=== PATIENT | male | born 2000 | race Caucasian/White ===

== ENCOUNTER 2019-05-19 21:58 | Inpatient (IN) | payer OTHER ==
[~2019-05-19] VITALS: Ht 195.6 cm; Wt 100.7 kg
[2019-05-19 22:45] LABS: BASO % 0.3 % (0.0-1.0); EOS # 0.1 10^3/uL (0.0-0.5); EOS % 1.1 % (0.0-3.0); HEMATOCRIT 41.1 % (42.0-52.0); HEMOGLOBIN 13.6 g/dl (13.5-17.5); LYMPH # 2.1 10^3/uL (1.5-5.0); LYMPH % 23.4 % (24.0-44.0); MEAN CORPUSCULAR HEMOGLOBIN 29.6 pg (27.0-33.0); MEAN CORPUSCULAR HGB CONC 33.1 g/dl (32.0-36.5); MEAN CORPUSCULAR VOLUME 89.5 fl (80.0-96.0); MONO # 1.3 10^3/uL (0.0-0.8); MONO % 14.3 % (0.0-5.0); NEUTROPHILS # 5.5 10^3/uL (1.5-8.5); NEUTROPHILS % 60.7 % (36.0-66.0); PLATELET COUNT, AUTOMATED 222 10^3/uL (150-450); RED BLOOD COUNT 4.59 10^6/uL (4.30-6.10)
[2019-05-19] MEDS ORDERED: NS 1,000 ML IV ONE (22:45)
[2019-05-19] MEDS ORDERED: GI COCKTAIL 50ML BTL(HYOSCYAMINE/MAALOX/LIDOCAINE VISCOUS)(1:3:1) PO ONE (22:45)
[2019-05-19] MEDS ORDERED: KETOROLAC 30 MG/ML VIAL (J1885) IV ONE (22:45)
[2019-05-19] MEDS ORDERED: methylPREDNISolone INJ 125 MG/2 ML VIAL (J2930) IV ONE (22:45)
[2019-05-19] MEDS ORDERED: ISOVUE-370 76% 100ML VIAL (Q9967) As Ordered ONE (22:47)
[2019-05-19 23:01] LABS: MONO REFLEX EBV COMP NEGATIVE (NEGATIVE)
--- NOTE | 2019-05-19 23:47 | REPVR ---
PROCEDURE INFORMATION: Exam: CT Neck With Contrast Exam date and time: 05/19/2019 10:51 PM Age: 19 years old Clinical history: Throat pain; Additional info: Dysphagia, neg strep, voice change TECHNIQUE: Imaging protocol: Computed tomography images of the neck with intravenous contrast. Radiation optimization: All CT scans at this facility use at least one of these dose optimization techniques: automated exposure control; mA and/or kV adjustment per patient size (includes targeted exams where dose is matched to clinical indication); or iterative reconstruction. Contrast material: ISOVUE 370; Contrast volume: 75 ml; Contrast route: IV; COMPARISON: No relevant prior studies available. FINDINGS: Nasopharynx: Unremarkable. Oropharynx: Marked widening of the right tonsillar pillar extending inferiorly to the hypopharynx with ill-defined hypodensity measuring 1.9 x 2.8 x 3 cm. consistent with gross adenopathy and likely an evolving abscess. There is mass effect on the hypopharyngeal airway. Prominent contour of the posterior aspect of the tongue consistent with lingual tonsil hypertrophy. Hypopharynx: Hypodensity is demonstrated in the region of the right piriform sinus effacing most of the sinus, findings which may be related to descending infection from the hypopharynx. Other etiologies not absolutely excluded. Impression for Larynx: Unremarkable. Normal epiglottis. Retropharyngeal space: Unremarkable. Submandibular/Parotid glands: Normal. Glands are normal in size. Thyroid: Normal. No enlarged or calcified nodules. Lymph nodes: Adenoidal hypertrophy consistent with adenopathy. Trachea: Visualized trachea is unremarkable. Lungs: Unremarkable as visualized. Bones/joints: Unremarkable. No acute fracture. Soft tissues: Left periorbital soft tissue lipoma. IMPRESSION: 1. Adenoidal hypertrophy consistent with adenopathy. 2. Marked widening of the right tonsillar pillar extending inferiorly to the hypopharynx with ill-defined hypodensity measuring 1.9 x 2.8 x 3 cm. consistent with gross adenopathy and likely an evolving abscess. There is mass effect on the hypopharyngeal airway. 3. Prominent contour of the posterior aspect of the tongue consistent with lingual tonsil hypertrophy. 4. Effacement of the right piriform sinus by irregular hypodensity may be related to the parapharyngeal abscess or present a secondary process. Electronically signed by: Shadi Doll On 05/19/2019 23:47:22 PM
[2019-05-20] VITALS (14 sets, daily range): BP systolic 112–134; BP diastolic 53–67; O2SAT 95–99
[2019-05-20 01:01] LABS: ERYTHROCYTE SEDIMENTATION RATE 64 mm/hr (0-15)
[2019-05-20] MEDS ORDERED: PIPERACILLIN/TAZOBACTAM SOD 3.375 GM in D5W MINI-BAG PLUS 50 ML IV ONE (01:30)
--- NOTE | 2019-05-20 01:38 | HPEPDOC ---
[facility] Medical History & Physical Date of Admission May 20, 2019 Date of Service: May 20, 2019 Attending Physician: PETER SWEET MD History and Physical TIME OF SERVICE: 250AM CC: itchy throat HPI: This is a 19 yr old male that presents with c/o of an itchy throat, associated with difficulties swallowing, subjective fever and muffled voice since Wednesday. He denies having a cough, runny nose, chills or sick contacts. ROS: 12 point ROS negative except as listed in HPI PMH/PSH none SH - tobacco + solider FMH reviewed - denies any family medical problems MEDS: see below NKDA IMAGING: CT of the throat "IMPRESSION: 1. Adenoidal hypertrophy consistent with adenopathy. 2. Marked widening of the right tonsillar pillar extending inferiorly to the hypopharynx with ill-defined hypodensity measuring 1.9 x 2.8 x 3 cm. consistent with gross adenopathy and likely an evolving abscess. There is mass effect on the hypopharyngeal airway. 3. Prominent contour of the posterior aspect of the tongue consistent with lingual tonsil hypertrophy. 4. Effacement of the right piriform sinus by irregular hypodensity may be related to the parapharyngeal abscess or present a secondary process." MICROBIOLOGY: pending PHYSICAL EXAM VITALS: see below GEN: doesn't appear toxic HEENT: + halitosis, right eye conjunctival injection, hyperremia and tonsilar swelling at the right side of the throat CVS: RRR, NMRG, radial pulses intact LUNGS: CTAB on RA MSK: ZACH x 4 extremities NEURO: CN 2-12 grossly intact, speech slightly muffled PSYCH: A&Ox 3, able to understand and follow all commands ASSESSMENT is a 19 yr with no PMH who will be admitted for management of a parapharyngeal abscess. PLAN: 1. Right parapharyngeal abscess w mass effect. He doesn't have SIRS criteria. ESR & CRP are elevated. He received solumedrol and Zozyn in the ER. Plan: admit to PCU for close monitoring / ENT consult / NPO aftermidnight's w IVF / c/w Zosyn/ Benzocaine throat spray w Morphine PRN for pain / f/u strep A, blood cx and post op-throat fluid cx DVT Px w SCDs Dispo: likely home after more than 2 midnight's stay Vital Signs Vital Signs Date Time Temp Pulse Resp B/P (MAP) Pulse Ox O2 Delivery O2 Flow Rate FiO2 05/20/19 01:23 97.1 78 17 124/67 (86) 99 Room Air Laboratory Data Labs 24H Laboratory Tests 2 05/19/19 22:38: Immature Granulocyte % (Auto) 0.2, Neutrophils (%) (Auto) 60.7, Lymphocytes (%) (Auto) 23.4L, Monocytes (%) (Auto) 14.3H, Eosinophils (%) (Auto) 1.1, Basophils (%) (Auto) 0.3, Neutrophils # (Auto) 5.5, Lymphocytes # (Auto) 2.1, Monocytes # (Auto) 1.3H, Eosinophils # (Auto) 0.1, Basophils # (Auto) 0.0, Nucleated Red Blood Cells % (auto) 0.0, Erythrocyte Sedimentation Rate 64H, C-Reactive Protein, Quantitative 4.79H 05/19/19 22:39: POC Glucose (Misc Panel) 94, POC Sodium (Misc Panel) 140, POC Potassium (Misc Panel) 3.9, POC Chloride (Misc Panel) 102, POC Total CO2 (Misc Panel) 28.0H, POC Blood Urea Nitrogen (Misc Panel 10, POC Ionized Calcium (Misc Panel) 4.8, POC Creatinine (Misc Panel) 0.8, POC Hematocrit (Misc Panel) 40.0, Monoscreen NEGAT GREGORY CBC/BMP Laboratory Tests 05/19/19 22:38 Microbiology Microbiology 05/19/19 Group A Streptococcus Screen (RE[facility]), Received Pending Home Medications No Active Prescriptions or Reported Meds Allergies Coded Allergies: No Known Allergies (Unverified , 05/19/19) A-FIB/CHADSVASC A-FIB History Current/History of A-Fib/PAF?: No Current PO Anticoag Therapy: No PETER SWEET MD May 20, 2019 01:38
[2019-05-20] MEDS ORDERED: ONDANSETRON 4MG/2ML VIAL (J2405) IV PRN (01:45)
[2019-05-20] MEDS ORDERED: MORPHINE 2 MG/ML 1ML VIAL (J2270) IV PRN (01:45)
[2019-05-20] MEDS ORDERED: ACETAMINOPHEN *IV* 1,000 MG in IV 1 EA IV ONE (01:45)
[2019-05-20] MEDS: NS 1,000 ML IV SCH ×3 (03:34→22:03)
[2019-05-20] MEDS ORDERED: CETACAINE SPRAY 5GM MT PRN (03:45)
[2019-05-20 07:32] LABS: HEMATOCRIT 39.5 % (42.0-52.0); HEMOGLOBIN 13.2 g/dl (13.5-17.5); MEAN CORPUSCULAR HEMOGLOBIN 29.6 pg (27.0-33.0); MEAN CORPUSCULAR HGB CONC 33.4 g/dl (32.0-36.5); MEAN CORPUSCULAR VOLUME 88.6 fl (80.0-96.0); PLATELET COUNT, AUTOMATED 233 10^3/uL (150-450); RED BLOOD COUNT 4.46 10^6/uL (4.30-6.10)
[2019-05-20 07:52] LABS: BLOOD UREA NITROGEN 15 MG/DL (7-18); CALCIUM LEVEL 9.5 MG/DL (8.5-10.1); CARBON DIOXIDE LEVEL 27 MEQ/L (21-32); CHLORIDE LEVEL 106 MEQ/L (98-107); CREATININE FOR GFR 0.87 MG/DL (0.70-1.30); GLOMERULAR FILTRATION RATE > 60.0 (>60); GLUCOSE, FASTING 154 MG/DL (70-100); POTASSIUM SERUM 4.5 MEQ/L (3.5-5.1); SODIUM LEVEL 139 MEQ/L (136-145)
[2019-05-20] MEDS: TAZOBACTAM SOD IV SCH ×2 (08:29→14:00)
[2019-05-20] MEDS: D5W MINI IV SCH ×2 (08:29→14:00)
[2019-05-20] MEDS: PIPERACILLIN IV SCH ×2 (08:29→14:00)
[2019-05-20] MEDS ORDERED: ACETAMINOPHEN TAB 650MG DOSE (2X325MG) PO PRN (08:30)
[2019-05-20] MEDS ORDERED: CETACAINE SPRAY 5GM TOP ONE (10:00)
[2019-05-20] MEDS ORDERED: LIDOCAINE W/EPINEPHRINE 1% 20ML VIAL SC ONE (10:00)
[2019-05-20] MEDS ORDERED: AUGM875T28 PO (10:22)
[2019-05-20] MEDS: PIPERACILLIN/TAZOBACTAM SOD 3.375 GM in D5W MINI-BAG PLUS 50 ML IV SCH ×2 (15:00→20:00)
--- NOTE | 2019-05-20 16:35 | IPNPDOC ---
Text Note Date of Service The patient was seen on 05/20/19. NOTE SUBJECTIVE: Patient is a 19-year-old male who was admitted early this morning for a right tonsillar abscess. He states that his pain is improved and he feels better on IV antibiotics. He does continue to hurt to swallow, but he denies any problems with his breathing. He says that he did originally have a fever, but has not had one since his presentation to the emergency department last night. He denies chest pain, nausea, vomiting, diarrhea, or bilateral lower extremity s welling. OBJECTIVE: Vitals: See below General: Well-nourished, well-groomed, young adult male in no acute distress HEENT: Mallampati 1. Soft palate swelling on the right side with erythema. No exudates are seen. Uvula rises midline. He has his own teeth and dentition is fair, with multiple cavities and fillings. Neck: No lymphadenopathy, rigidity, or masses Lungs: Clear to auscultation bilaterally; no wheezes, rhonchi, or rales Heart: Regular rate and rhythm; no gallops, murmurs, or rubs Abdomen: Normal active bowel sounds, nontender to palpation, nondistended Extremities: No bilateral lower extremity edema Neuro: No focal deficits noted, cranial nerves II through XII grossly intact Psych: Pleasant and cooperative, affect full ASSESSMENT: 19-year-old male admitted early this morning for a right peritonsillar abscess, on IV antibiotics Day #1 with IV Zosyn. PLAN: 1. Peritonsillar abscess, right-sided. Incision and drainage performed at the bedside with Dr. Nate Chua, otolaryngology. He continues on Zosyn. Continuous O2 monitoring for obstruction. Morphine when necessary for pain. Blood cultures pending, group A strep screen pending. DISPOSITION: Likely discharge home tomorrow with PO Augmentin VS,Fishbone, I+O VS, Fishbone, I+O Laboratory Tests 05/19/19 22:38 05/20/19 07:23 Vital Signs Date Time Temp Pulse Resp B/P (MAP) Pulse Ox O2 Delivery O2 Flow Rate FiO2 05/20/19 12:00 97.8 79 17 121/56 (77) 94 Room Air I&O- Last 24 Hours up to 6 AM 05/20/19 06:00 Intake Total 1050 ml Balance 1050 ml GME ATTESTATION GME ATTESTATION My faculty preceptor for this patient encounter was physically present during the encounter and was fully available. All aspects of the patient interview, examination, medical decision making process, and medical care plan development were reviewed and approved by the faculty preceptor. The faculty preceptor is aware and concurs with the plan as stated in the body of this note and will attest to such by his/her cosignature. ATTENDING NOTE I, Pepito Sylvester, have independently examined this patient and performed my own physical exam, as well as reviewed the documentation and edited where necessary. I have discussed in detail with the resident / student the findings and plan of treatment as documented by the resident / student and edited their note. I agree with their findings and treatment plan and have edited their documentation. I will continue to follow the patient during this hospital stay. DANIELLE BIANCHI D.O. May 20, 2019 16:35 PEPITO SYLVESTER MD May 21, 2019 15:11
[2019-05-20] MEDS ORDERED: AUGMENTIN 875 MG TAB PO SCH (18:00)
[2019-05-21] VITALS (10 sets, daily range): BP systolic 121–129; BP diastolic 60–73; O2SAT 97–98
[2019-05-21] MEDS: NS 1,000 ML IV SCH (06:15)
[2019-05-21] MEDS ORDERED: AUGMENTIN 875 MG TAB PO SCH (09:00)
--- NOTE | 2019-05-21 09:36 | DS.PDOC ---
Discharge Summary General Date of Admission May 20, 2019 at 01:34 Date of Discharge 05/21/2019 Discharge Summary PROCEDURES PERFORMED DURING STAY: Bedside incision and drainage performed by Dr. Chua on 05/20/2019 ADMITTING DIAGNOSES / DISCHARGE DIAGNOSES: Right parapharyngeal abscess with mass effect DVT prophylaxis COMPLICATIONS/CHIEF COMPLAINT: Horse voice and difficulty swallowing HISTORY OF PRESENT ILLNESS / HOSPITAL COURSE: Patient is a 19-year-old male with no significant past medical history who presented to the emergency room with an itchy throat. Patient had reported difficulty with swallowing and a muffled voice. Imaging emergency room had re vealed the patient had developed a right-sided tonsillar pillar abscess. ENT was called on consultation and performed an incision and drainage at the bedside on 05/20/2019. Patient has reported that his symptoms have improved significantly. His voice has now returned to baseline. Patient reported that he has been able to tolerate an oral diet. Patient was continued with broad-spectrum antibiotics for 24 hours and then transitioned to oral antibiotics with outpatient follow-up with ENT within the next 7 days. DISCHARGE MEDICATIONS: Please see below. ALLERGIES: Please see below. PHYSICAL EXAMINATION ON DISCHARGE: Vitals (See below) General: Lying in bed, no acute distress, comfortable, AAOx3 HEENT: NC, AT, right-sided tonsillar pillar appears significantly improved; erythema noted; however no appreciated drainage can be seen CVS: RRR, +S1S2 Lungs: Fair air entry b/l, -w/r/r Abdomen: Soft, ND, NT Extremities: - Edema, - Calf tenderness LABORATORY DATA: Please see below. IMAGING: CT Neck 05/21: 1. Adenoidal hypertrophy consistent with adenopathy. 2. Marked widening of the right tonsillar pillar extending inferiorly to the hypopharynx with ill-defined hypodensity measuring 1.9 x 2.8 x 3 cm. consistent with gross adenopathy and likely an evolving abscess. There is mass effect on the hypopharyngeal airway. 3. Prominent contour of the posterior aspect of the tongue consistent with lingual tonsil hypertrophy. 4. Effacement of the right piriform sinus by irregular hypodensity may be related to the parapharyngeal a bscess or present a secondary process. PROGNOSIS: Fair ACTIVITY: [As tolerated]. DISCHARGE PLAN: Follow-up with primary care provider and Dr. Chua within the next 7 days Remain compliant with treatment plan and medications Return to the ER if experience any problems DISPOSITION: Home DISCHARGE CONDITION: [Stable]. TIME SPENT ON DISCHARGE: 35 minutes Vital Signs/I&Os Vital Signs Date Time Temp Pulse Resp B/P (MAP) Pulse Ox O2 Delivery O2 Flow Rate FiO2 05/21/19 08:00 98.4 62 18 129/63 (85) 94 Room Air I&O- Last 24 Hours up to 6 AM 05/21/19 06:00 Intake Total 820 ml Output Total 850 ml Balance -30 ml Microbiology Microbiology 05/20/19 Blood Culture - Preliminary, Resulted No growth after 24 hours . All specim... 05/20/19 Blood Culture - Preliminary, Resulted No growth after 24 hours . All specim... 05/19/19 Group A Streptococcus Screen ([facility]NA) - Final, Complete Discharge Medications Scheduled Amoxicillin/Potassium Clav (Augmentin 875-125 Tablet) 1 Each Tablet, 1 TAB PO BID Allergies Coded Allergies: No Known Allergies (Unverified , 05/19/19) PEPITO SYLVESTER MD May 21, 2019 09:35
[2019-05-21 10:14] LABS: HEMATOCRIT 34.1 % (42.0-52.0); HEMOGLOBIN 11.4 g/dl (13.5-17.5); MEAN CORPUSCULAR HEMOGLOBIN 29.8 pg (27.0-33.0); MEAN CORPUSCULAR HGB CONC 33.4 g/dl (32.0-36.5); PLATELET COUNT, AUTOMATED 196 10^3/uL (150-450); RED BLOOD COUNT 3.83 10^6/uL (4.30-6.10); WHITE BLOOD COUNT 7.2 10^3/uL (4.0-10.0)
[2019-05-21 10:32] LABS: ERYTHROCYTE SEDIMENTATION RATE 54 mm/hr (0-15)
[2019-05-21 10:38] LABS: BLOOD UREA NITROGEN 12 MG/DL (7-18); C REACTIVE PROTEIN QUANTITATIV 2.43 MG/DL (0.00-0.30); CALCIUM LEVEL 8.4 MG/DL (8.5-10.1); CARBON DIOXIDE LEVEL 29 MEQ/L (21-32); CHLORIDE LEVEL 111 MEQ/L (98-107); CREATININE FOR GFR 0.72 MG/DL (0.70-1.30); GLOMERULAR FILTRATION RATE > 60.0 (>60); GLUCOSE, FASTING 98 MG/DL (70-100); SODIUM LEVEL 144 MEQ/L (136-145)
[2019-05-23 00:06] LABS: EBV VIRAL CAPSID AG IgG >600.0 U/mL (0.0-17.9); EBV VIRAL CAPSID AG IgM <36.0 U/mL (0.0-35.9)
== END 2019-05-21 14:42 | disposition home or self-care (01) | DRG 133 ==
LOC: M ED 21:58 → M ED INP 05-20 01:34 → M PCU 05-20 02:55
PROVIDERS: ADMIT Internal Medicine; ATTEND Internal Medicine
PROC: 0C9PXZZ Drainage of Tonsils, External Approach (ICD-10-PCS; principal; 2019-05-20)
DX: J39.1 Other abscess of pharynx (principal); J36 Peritonsillar abscess

== ENCOUNTER → 2019-06-22 | Outpatient (CLI) | payer OTHER ==
[~2019-06-22] MED LIST: AUGM875T28 PO; KEFL500C17 PO
[2019-06-22 17:27] LABS: HEMATOCRIT 42.9 % (42.0-52.0); HEMOGLOBIN 13.6 g/dl (13.5-17.5); MEAN CORPUSCULAR HEMOGLOBIN 28.9 pg (27.0-33.0); MEAN CORPUSCULAR HGB CONC 31.7 g/dl (32.0-36.5); MEAN CORPUSCULAR VOLUME 91.1 fl (80.0-96.0); PLATELET COUNT, AUTOMATED 195 10^3/uL (150-450); RED BLOOD COUNT 4.71 10^6/uL (4.30-6.10); WHITE BLOOD COUNT 6.1 10^3/uL (4.0-10.0)
[2019-06-22 17:28] LABS: BLOOD UREA NITROGEN 13 MG/DL (7-18); CALCIUM LEVEL 8.9 MG/DL (8.5-10.1); CARBON DIOXIDE LEVEL 29 MEQ/L (21-32); CHLORIDE LEVEL 106 MEQ/L (98-107); CREATININE FOR GFR 0.87 MG/DL (0.70-1.30); GLOMERULAR FILTRATION RATE > 60.0 (>60); GLUCOSE, FASTING 81 MG/DL (70-100); POTASSIUM SERUM 4.1 MEQ/L (3.5-5.1); SODIUM LEVEL 142 MEQ/L (136-145)
== END ==
LOC: M LRY 13:12
PROVIDERS: ATTEND Plastic Surgery Surgery of the Hand
DX: D49.2 Neoplasm of unspecified behavior of bone, soft tissue, and skin (principal)

== ENCOUNTER 2019-06-27 07:56 | Day surgery (SDC) | payer OTHER ==
[~2019-06-27] VITALS: Ht 193 cm; Wt 96.6 kg
[~2019-06-27 07:56] MED LIST changes: +BACITRACIN PWD 50,000 UNITS VIAL As Ordered ONE; -KEFL500C17 PO; +LIDOCAINE 2% INJ 100 MG/5 ML SDV (FOR ANES.) As Ordered ONE; +LIDOCAINE 2% W/EPIN INJ 20ML **PRES FREE As Ordered ONE; +LR 1,000 ML IV ONE; +MIDAZOLAM INJ 2 MG/2 ML VIAL (J2250) As Ordered ONE; +POVIDONE-IODINE 5% OPHTH PREP SOL 30ML As Ordered ONE; +ceFAZolin SOD 1 GM in D5W MINI-BAG PLUS 50 ML IV ONE; +fentaNYL 100 MCG/2 ML INJECTION (J3010) As Ordered ONE; +propofoL 200 MG/20 ML VIAL As Ordered ONE
[2019-06-27] MEDS ORDERED: POLYSPORIN OPHTH OINT 3.5 GM As Ordered ONE (07:58)
[2019-06-27] MEDS ORDERED: MIDAZOLAM INJ 2 MG/2 ML VIAL (J2250) As Ordered ONE (08:46)
[2019-06-27] MEDS ORDERED: ONDANSETRON 4MG/2ML VIAL (J2405) As Ordered ONE (09:04)
[2019-06-27] MEDS ORDERED: KETOROLAC 60 MG/2 ML VIAL (J1885) As Ordered ONE (09:04)
[2019-06-27] MEDS ORDERED: dexameTHASONE 4 MG/ML 1ML VIAL (J1100) As Ordered ONE (09:04)
--- NOTE | 2019-06-27 09:43 | POST-OPPD ---
Postoperative Procedure Note Date Of Procedure: Jun 27, 2019 PREOPERATIVE DIAGNOSIS: Left upper brow mass POSTOPERATIVE DIAGNOSIS: Same FINDINGS: Left upper brow cyst PROCEDURE: Excision Left upper brow mass SURGEON: Dr Linares ANESTHESIA: General SPECIMENS: Left upper brow cyst ESTIMATED BLOOD LOSS: 1 cc REPLACED: none DRAINS: none COMPLICATIONS: none POSTOPERATIVE CONDITION: stable LEONIDAS LINARES DO Jun 27, 2019 09:43
[2019-06-27] MEDS ORDERED: KEFL500C17 PO (09:47)
[2019-06-27] MEDS: PERCOCET 5MG/325MG TAB PO PRN ×2 (10:10→10:40)
[2019-06-27] MEDS ORDERED: fentaNYL 100 MCG/2 ML INJECTION (J3010) IV PRN (10:15)
[2019-06-27] MEDS ORDERED: LR 1,000 ML IV SCH (10:15)
[2019-06-27] MEDS ORDERED: HYDROMORPHONE HCL 0.5 MG/ 0.5 ML SYRINGE (J1170 PER 1) IV PRN (10:15)
[2019-06-27] MEDS ORDERED: ONDANSETRON 4MG/2ML VIAL (J2405) IV PRN (10:15)
[2019-06-27 11:30] VITALS: BP 134/78
--- NOTE | 2019-06-28 00:16 | RO ---
DATE OF PROCEDURE: 06/27/2019 PREPROCEDURE DIAGNOSIS: Left upper brow mass. POSTPROCEDURE DIAGNOSIS: Left upper brow mass. PROCEDURE: Excision left upper brow mass. FINDINGS: Cyst. SURGEON: Lesly Aguila DO ANESTHESIA: General. SPECIMEN SENT: Left upper brow cyst. BLOOD LOSS: 1 mL. POSTOPERATIVE CONDITION: Stable. DESCRIPTION OF PROCEDURE: This is a 19-year-old male who has a slow growing mass right above his lateral left upper brow, which interferes with his daily duties in [employer]. His helmet rests on that area. The size of it is about 2-1/2 cm in diameter. No active drainage currently. Patient is scheduled to have it excised. All the risks and benefits and alternatives discussed with the patient, and he is ready to proceed the day of surgery. Informed consent confirmed. Patient was marked in holding area, and then he was brought into the operating room, placed in supine position. Preoperative antibiotics were given, sequential stockings were placed on the lower calves. General anesthesia was induced. He was prepped and draped in the usual sterile fashion. We made a horizontal incision except the upper lateral part of the left brow. Sharp and blunt dissection was done until the frontalis muscle identified and deep to it, we identified the large cyst with a thick wall filled with clear yellowish liquid, no odor. The cyst was entered and drained. The cyst wall was completely excised using electrocautery and scissors, and it was sent to pathology. The area was irrigated with bacitracin irrigation. Hemostasis obtained. The wound was closed in layers with interrupted #4-0 Vicryl sutures, #4-0 Monocryl and #5-0 Monocryl, Dermabond and a compression dressing was applied. The patient was extubated in the operating room without any difficulty and transferred to the recovery room in stable condition. [facility] AMERICAN HOSPITALBrian
== END 2019-06-27 11:35 | disposition home or self-care (01) ==
LOC: M SDC 07:56
PROVIDERS: ATTEND Plastic Surgery Surgery of the Hand
DX: L72.0 Epidermal cyst (principal); F17.290 Nicotine dependence, other tobacco product, uncomplicated
CPT/HCPCS: 11443; 88304; J0690; J1100; J1885; J2250; J2405; J3010

== ENCOUNTER 2020-02-14 21:29 | Emergency (ER) | payer OTHER ==
[~2020-02-14] VITALS: Ht 193 cm; Wt 109.5 kg
[~2020-02-14 21:29] MED LIST changes: -BACITRACIN PWD 50,000 UNITS VIAL As Ordered ONE; +KEFL500C17 PO; -LIDOCAINE 2% INJ 100 MG/5 ML SDV (FOR ANES.) As Ordered ONE; -LIDOCAINE 2% W/EPIN INJ 20ML **PRES FREE As Ordered ONE; -LR 1,000 ML IV ONE; -MIDAZOLAM INJ 2 MG/2 ML VIAL (J2250) As Ordered ONE; -POVIDONE-IODINE 5% OPHTH PREP SOL 30ML As Ordered ONE; -ceFAZolin SOD 1 GM in D5W MINI-BAG PLUS 50 ML IV ONE; -fentaNYL 100 MCG/2 ML INJECTION (J3010) As Ordered ONE; -propofoL 200 MG/20 ML VIAL As Ordered ONE
[2020-02-14] MEDS ORDERED: LIDOCAINE 5% (LIDODERM) PATCH TD ONE (22:30)
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
[2020-02-14] MEDS ORDERED: ROBA750T4 PO (23:17)
[2020-02-14 23:25] VITALS: BP 110/55
[2020-02-14] MEDS ORDERED: methocarbamoL 750 MG TAB PO ONE (23:30)
[2020-02-15] MEDS ORDERED: **NOTE PATIENT COMMENT** MISC XX SCH (21:00)
== END 2020-02-14 23:30 | disposition home or self-care (01) ==
LOC: M ED 21:29
DX: S16.1XXA Strain of muscle, fascia and tendon at neck level, initial encounter (principal); V43.52XA Car driver injured in collision with other type car in traffic accident, initial encounter; Y92.410 Unspecified street and highway as the place of occurrence of the external cause; Y93.89 Activity, other specified; Y99.8 Other external cause status